=== PATIENT | male | born 1960 | race Caucasian/White ===

== ENCOUNTER → 2024-04-22 07:44 | Outpatient (REF) | payer BC, SELFPAY ==
[2024-04-22 08:03] LABS: % Basophils 0.4 % (0-2); % Eosinophils 3.2 % (0-6); % Immature Granulocytes 0.2 % (0-0.5); % Lymphocytes 36.3 % (20.5-51.1); % Monocytes 9.9 % (1.7-9.3); Absolute Eosinophils 0.2 10^3/uL (0-0.7); Absolute Lymphocytes 1.9 10^3/uL (1.2-3.4); Absolute Monocytes 0.5 10^3/uL (0.1-0.6); Absolute Neutrophils 2.6 10^3/uL (1.4-6.5); Hemoglobin 14.3 g/dL (13.0-18.0); Mean Corp Hgb Conc. 34.9 g/dL (33.0-37.0); Mean Corpuscular Hgb 29.8 pg (27.0-31.0); Mean Corpuscular Volume 85.4 fL (80.0-94.0); Mean Platelet Volume 10.9 fL (7.4-10.4); Nucleated Red Blood Cells % 0 % (-); Platelet Count 194 10^3/uL (130-400); Red Cell Dist. Width 13.2 % (11.5-14.5); White Blood Cell Count 5.2 10^3/uL (4.8-10.8)
[2024-04-22 10:27] LABS: ALT (SGPT) 28 U/L (0-50); AST (SGOT) 32 U/L (17-59); Albumin 3.9 g/dl (3.5-5.0); Alkaline Phosphatase 43 U/L (38-126); Blood Urea Nitrogen 22 mg/dl (9-20); Calcium 9.5 mg/dl (8.4-10.2); Carbon Dioxide 30 mmol/L (22-30); Chloride 102 mmol/L (98-107); Glucose 92 mg/dl (70-99); HDL Cholesterol 70 mg/dl; LDL Cholesterol, Calculated 105 mg/dl; Potassium 4.2 mmol/L (3.5-5.1); Sodium 142 mmol/L (135-145); Total Bilirubin 0.7 mg/dl (0.2-1.3); Total Cholesterol 186 mg/dl (50-199); Total Protein 6.3 g/dl (6.3-8.2); Triglyceride 57 mg/dl (10-149); Very Low Density Lipoprotein 11 mg/dl (0-30); eGFR > 60.00
== END ==
LOC: REG 07:44
PROVIDERS: ATTENDING PHYSICIAN Family Medicine
DX: J45.998 Other asthma (principal); R35.1 Nocturia; E78.2 Mixed hyperlipidemia; Z12.5 Encounter for screening for malignant neoplasm of prostate
CPT/HCPCS: 36415; 80053; 80061; 85025; G0103

== ENCOUNTER 2024-12-09 20:33 | Observation (INO) | payer BC, SELFPAY ==
[2024-12-09 15:21] VITALS: BP 134/82
[2024-12-09 15:38] LABS: % Basophils 0.2 % (0-2); % Eosinophils 1.3 % (0-6); % Immature Granulocytes 0.3 % (0-0.5); % Lymphocytes 18.2 % (20.5-51.1); % Monocytes 9.3 % (1.7-9.3); % Neutrophils 70.7 % (42.2-75.2); Absolute Eosinophils 0.1 10^3/uL (0-0.7); Absolute Lymphocytes 1.7 10^3/uL (1.2-3.4); Absolute Monocytes 0.9 10^3/uL (0.1-0.6); Absolute Neutrophils 6.7 10^3/uL (1.4-6.5); Hematocrit 38.1 % (39.0-52.0); Hemoglobin 13.7 g/dL (13.0-18.0); Mean Corpuscular Hgb 30.9 pg (27.0-31.0); Mean Corpuscular Volume 85.8 fL (80.0-94.0); Mean Platelet Volume 10.8 fL (7.4-10.4); Nucleated Red Blood Cells % 0 % (-); Platelet Count 169 10^3/uL (130-400); Red Blood Cell Count 4.44 10^6/uL (4.70-6.10); Red Cell Dist. Width 12.5 % (11.5-14.5); White Blood Cell Count 9.5 10^3/uL (4.8-10.8)
[2024-12-09 16:00] LABS: ALT (SGPT) 25 U/L (0-50); AST (SGOT) 25 U/L (17-59); Albumin 4.4 g/dl (3.5-5.0); Alkaline Phosphatase 54 U/L (38-126); Blood Urea Nitrogen 21 mg/dl (9-20); Calcium 9.4 mg/dl (8.4-10.2); Carbon Dioxide 23 mmol/L (22-30); Chloride 102 mmol/L (98-107); Glucose 105 mg/dl (70-99); Potassium 4.5 mmol/L (3.5-5.1); Sodium 137 mmol/L (135-145); Total Bilirubin 0.7 mg/dl (0.2-1.3); Total Protein 6.7 g/dl (6.3-8.2); eGFR > 60.00
--- NOTE | 2024-12-09 19:21 | ED.GENMED ---
History of Present Illness
General
Chief Complaint: Skin Problem
Time Seen by Provider: 12/09/24 18:49
History of Present Illness
History of Present Illness:
63-year-old male without significant past medical history presenting to the emergency department for left upper extremity swelling and redness. Patient reports over the weekend, noticed area of redness proximal to the elbow. He thought that it was
maybe a bug bite. He went to his doctor, was started on Bactrim 3 days ago. He followed up with his doctor today, noted that the redness was worsening, and also now with low-grade fevers. Denies pain with range of motion to the elbow. Denies
history of skin infections in the past. Denies numbness or tingling to his extremity. Denies chest pain or difficulty breathing. Denies abdominal pain or GI symptoms. Denies additional acute medical complaints
Past History
Past History
ED Past Medical History: None
Social History
Tobacco: Non-smoker
Alcohol: None
Drug: None
Personal:
Living: with family
Employment: Employed
Phy Exam
Physical Exam
Physical Exam:
General: Well-appearing, no clinical signs of dehydration, nontoxic and in no acute distress
HEENT: protecting airway
Neck: appears supple
CV: Normal heart rate, regular rhythm
Resp: No accessory muscle use, no increased work of breathing, lungs clear to auscultation bilaterally
Abd: No distention
Extremities: No deformities, generally swelling to left upper extremity with erythema from the distal forearm, up to the elbow, and starting to encroach on the proximal bicipital region. Small area of induration at the distal elbow region. No
crepitus. Range of motion of the elbow is intact, no pain with range of motion testing
Neuro: alert, no focal neurologic deficit
: deferred
Rectal: deferred
Psych: Normal affect
Skin: Intact
Course
Orders/Labs/Results
Orders:
Orders
12/09/24 15:30
Complete Blood Count/With Diff Urgent
Comprehensive Metabolic Panel Urgent
Lactic Acid Q4H
Comment: ON ICE, CANCEL 2ND ORDER IF FIRST LACTIC ACID LEVEL <2
Blood Culture Q20M
DERRICK Source: Blood/Venous
Specimen Description:
Comment: Urgent from separate sites. If patient screens positive for possible sepsis
12/09/24 19:37
Blood Culture Q20M
DERRICK Source: Blood/Venous
Specimen Description:
Comment: Urgent from separate sites. If patient screens positive for possible sepsis
12/09/24 19:45
Vancomycin [Vancocin] 2,000 mg 0.9% Sodium Chloride 500 ml [Nss] 500 ml IV NOW
Abnormal Lab Results
12/09/24
15:30
RBC 4.44 L 10^6/uL
(4.70-6.10)
Hct 38.1 L %
(39.0-52.0)
MPV 10.8 H fL
(7.4-10.4)
Absolute Neuts (auto) 6.7 H 10^3/uL
(1.4-6.5)
Absolute Monos (auto) 0.9 H 10^3/uL
(0.1-0.6)
Lymphocytes % 18.2 L %
(20.5-51.1)
BUN 21 H mg/dl
(9-20)
Glucose 105 H mg/dl
(70-99)
12/09/24 15:30
12/09/24 15:30
Vital Signs
Initial and Last Documented VS:
Initial Vital Signs
Temp Pulse Resp BP Pulse Ox
98.8 F 71 18 134/82 95
12/09/24 15:21 12/09/24 15:21 12/09/24 15:21 12/09/24 15:21 12/09/24 15:21
Last Documented Vital Signs
Temp Pulse Resp BP Pulse Ox
98.8 F 60 18 132/79 98
12/09/24 15:21 12/09/24 19:30 12/09/24 19:30 12/09/24 19:30 12/09/24 19:30
MDM/Problems Addressed
MDM/Problems Addressed:
63-year-old male presenting for worsening swelling and redness to the left upper extremity despite oral antibiotics. Vital signs are normal.
On exam, patient is resting comfortably, no acute distress. Patient does have significant cellulitic changes to the left upper extremity. No crepitus. Small area at the proximal forearm of induration, likely source. There is some streaking going
up the left bicipital region. At this time concern for outpatient therapy, has been on Bactrim with worsening. Although not polymicrobial coverage, concern of rapidity of spread. Screening laboratory analysis obtained. Unremarkable. No
neurovascular compromise to the extremity. No concern for septic arthritis of the elbow. No pain with range of motion. Feel patient warrants admission for IV antibiotics for failure of outpatient therapy
*Critical Care Note
Total Time (30-74mins, 75-104mins- exclusive of procedures): Not Applicable
ED Attending Note
-
Portions of this chart may have been created with voice recognition software.� Occasional wrong word or��sound alike� substitutions may have occurred due to the inherent limitations of voice recognition software.
Discharge Plan
Departure
Prescriptions:
No Action
Q Darion
2 puff inhalation DAILY
polymyxin B sulf-trimethoprim [Polytrim] 10 ML drops
1 drp OP Q3H Qty: 10 0RF
Rx Instructions:
to affected eye while awake
sulfamethoxazole-trimethoprim 800 MG/160 MG tablet
1 tab PO BID Qty: 10 0RF
amoxicillin-pot clavulanate [Augmentin] 1 EACH tablet
1 ea PO BID Qty: 20 0RF
Referrals:
Jeremi Gomez MD [Family Provider] -
Interventions
Interventions:
*Risk Screen - Suicide Last Done: 12/09/24 15:21
*General Assessment Last Done: 12/09/24 19:29
*Neglect/Abuse Screening Last Done: 12/09/24 19:29
*ED- Fall Risk Assessment Last Done: 12/09/24 19:29
*ED COVID-19 Vaccine History Last Done: 12/09/24 19:29
ED-Skin Assessment Last Done: 12/09/24 19:31
Discharge Date and Time
Print Language: MALAYSIAN
[2024-12-09 19:29] VITALS: BMI 26.9
[2024-12-09 19:30] VITALS: BP 132/79
--- NOTE | 2024-12-09 19:59 | HPS.HSE ---
Family Physician
-
Family Physician: Jeremi Gomez
Chief Complaint
-
left upper extremity swelling and redness
History of Present Illness
Patient is a 63-year-old male with no significant past medical history who presented to [facility] ED for evaluation of left upper extremity swelling and redness. Patient reports he noticed a bump to the posterior proximal elbow on Friday, think it was
a bug bite or infected pimple. He stated redness and swelling increased over a few days and he went to primary care that placed him on Bactrim that he took for last 3 days and erythema and edema continued to worsen. He followed up with primary today
with worsening symptoms and they referred him to ED for evaluation and treatment. Patient denies any fever, chills, cough, shortness of breath, nausea, vomiting, constipation, diarrhea or urinary symptoms.
Medical History
Past Medical History
Past Medical History: Reports Other
Additional Past Medical History:
Asthma
Actinic keratoses
Allergic rhinitis
Cancer, basal Cell-Excision (1996)
Past Surgical History: Reports Other
Additional Past Surgical History:
Cancer, basal Cell-Excision (1996)
vasectomy
Social History
Tobacco: Non-smoker
Alcohol: Occasional
Drug: None
Personal:
Living: With Family
Employment: Employed
Family History
Family History: Not pertinent
Allergies / Home Medications
Allergies reflects when Allergies were last updated in [facility].
Home Medications with original date entered in [facility]
Allergy/Medication List:
Allergies
Allergy/AdvReac Type Severity Reaction Status Date / Time
No Known Allergies Allergy Verified 12/09/24 15:21
Home Medications
fluticasone propionate 115 mcg-salmeterol 21 mcg/actuation HFA inhaler (Advair HFA) 1 puff inhalation R DAILY 12/09/24
sulfamethoxazole 800 mg-trimethoprim 160 mg tablet (Bactrim DS) 1 tab PO BID 12/09/24
valacyclovir 500 mg tablet 500 mg PO DAILYPRN PRN shingles/cold sores 12/09/24
Review of Systems
-
History Source: Patient
Constitutional: Reports No Symptoms
EENT: Reports No Symptoms
Respiratory: Reports No Symptoms
Cardiac: Reports No Symptoms
Abdomen/GI: Reports No Symptoms
: Reports No Symptoms
Musculoskeletal: Reports Other (bump to the posterior proximal elbow on Friday, continue to spread erythema and edema )
Skin: Reports No Symptoms
Neurological: Reports No Symptoms
Endocrine: Reports No Symptoms
Hematologic/Lymphatic: Reports No Symptoms
Psych: Reports No Symptoms
Physical Exam
Vital Signs
Vital Signs
Temp Pulse Resp BP Pulse Ox
98.8 F 60 18 132/79 98
12/09/24 15:21 12/09/24 19:30 12/09/24 19:30 12/09/24 19:30 12/09/24 19:30
Physical Exam
General: Well Developed, Well Nourished, No Apparent Distress, Comfortable and Conversant
HEENT: NormoCephalic, Moist mucous membranes, Atraumatic, [place] Conjunctivae, Nose Appears Normal and Ears Appear Normal
Respiratory: Clear
Cardiac: S1/S2 and Regular Rhythm
GI: Soft, Non Tender, Non Distended and Normal Bowel Sounds
Rectal: Deferred by Provider
Genito-urinary: Deferred by me
Musculoskeletal: No Clubbing, No Cyanosis and Edema, Left Upper Extremity (bump to the posterior proximal elbow on Friday, continue to spread erythema and edema )
Skin: Warm, Rash and Other (bump to the posterior proximal elbow on Friday, continue to spread erythema and edema )
Neuro: Awake, Alert, AO x 3 and Nonfocal/grossly intact
Psych: Calm and Intact Judgment/Insight
Laboratory Results
-
12/09/24 15:30
12/09/24 15:30
Laboratory Results
Lactic Acid Cancelled 12/09/24 19:30
Total Bilirubin 0.7 mg/dl (0.2-1.3) 12/09/24 15:30
AST 25 U/L (17-59) 12/09/24 15:30
ALT 25 U/L (0-50) 12/09/24 15:30
Alkaline Phosphatase 54 U/L (38-126) 12/09/24 15:30
Data Reviewed
-
Lab Data: Labs Reviewed by me
Impression/Plan
-
IMPRESSION/PLAN:
#left arm cellulitis
#left elbow erythema and edema
spreads down forearm to wrist and upward a few centimeters
WBC 9.5
- Admit to med/surg
- IV antibiotics
- supportive care
#asthma
- continue Advair
Code status: full code
DVT prophylaxis: Lovenox Sq
--- NOTE | 2024-12-09 20:03 | W.PN.UPDATE ---
Update Note
Progress Note Update
Patient seen in conjunction with JEANNETTE. I agree the findings and physical. I concur with assessment plan listed otherwise.
Briefly, this healthy 63-year-old with past medical history of mild intermittent asthma presented to the emergency department with swelling and redness of the left upper extremity.
Patient reported that he had a initial punctate redness and swelling just below the elbow on the left hand. He was not clear if it was a bug bite or not. He saw his physician who started him on Bactrim 3 days ago. He had a follow-up today and the
erythema and edema had spread into the forearm as well as up the upper arm. He reports mild discomfort but no significant pain. Range of motion is normal. He denies having fevers or chills. He denies any pruritus.
In the emergency department he was afebrile blood pressure was 132/79 with a pulse of 60 satting 98% on room air. CBC was completely unremarkable with a normal differential and no eosinophilia. Electrolytes were normal. BUN and creatinine were
normal and glucose was normal.
Assessment and plan
63-year-old with expanding cellulitis status post 3 days of outpatient Bactrim. Afebrile and shows no systemic signs of infection. However given the rapid spread there is concern for failure of outpatient Bactrim. Labs are unremarkable. Patient
has no significant risk factors.
- Admit to MedSurg observation
- IV vancomycin
- Keep arm elevated
- Blood cultures afebrile
- Pain control as needed
DVT prophylaxis with Lovenox subcu
CODE STATUS�full code
[2024-12-09] MEDS: VANCOCIN 540 MG IV (20:08)
[2024-12-09 21:32] VITALS: BP 128/75
--- NOTE | 2024-12-09 22:08 | EDRN ---
the pt c/o feeling itching on his scalp. noted redness to scalp and red blotches on face. The admitting hospitalist DELGADO Keenan was notified of above.
Per admitting DELGADO Christie, the pts Vancomycin infusion was STOPPED at this time and pt given ordered IVP medication. See EMAR
Total Amount of Vancomycin infused: 300mls infused out of 540mLs total
[2024-12-09] MEDS: BENADRYL 25 MG IV (22:13)
[2024-12-09 23:24] VITALS: BP 134/69; BMI 26.6
[2024-12-10] MEDS: ANCEF 10 IV ×3 (02:44→17:10)
[2024-12-10 06:55] LABS: Hematocrit 40.2 % (39.0-52.0); Hemoglobin 14.3 g/dL (13.0-18.0); Mean Corp Hgb Conc. 35.6 g/dL (33.0-37.0); Mean Corpuscular Hgb 30.4 pg (27.0-31.0); Mean Corpuscular Volume 85.4 fL (80.0-94.0); Mean Platelet Volume 10.8 fL (7.4-10.4); Platelet Count 162 10^3/uL (130-400); Red Blood Cell Count 4.71 10^6/uL (4.70-6.10); Red Cell Dist. Width 12.5 % (11.5-14.5)
[2024-12-10 07:15] VITALS: BP 139/66
[2024-12-10 07:20] LABS: Blood Urea Nitrogen 17 mg/dl (9-20); Calcium 9.5 mg/dl (8.4-10.2); Carbon Dioxide 23 mmol/L (22-30); Chloride 106 mmol/L (98-107); Estimated Creatinine Clearance 77 ml/min; Glucose 113 mg/dl (70-99); Potassium 4.6 mmol/L (3.5-5.1); Sodium 138 mmol/L (135-145); eGFR > 60.00
[2024-12-10] MEDS: ADVAIR HFA 115/21 MCG INHALER 1 PUFF INH (07:39)
--- NOTE | 2024-12-10 10:49 | W.PN.HOSP.TC ---
Addendum entered and electronically signed by Segun Dow DO 12/10/24 15:51:
Doppler ultrasound negative for DVT.
Stable for discharge after next dose of IV cefazolin.
Follow-up with PCP.
Original Note:
Today's Communication/Plan
-
Continue antibiotics
Doppler ultrasound
Discharge later
Assessment / Plan
Assessment / Plan
Gen-AAOx3, NAD
HEENT-NC, AT, anicteric, clear oral mm
Neck-supple
CV-reg, no M, +S1/S2
Lungs-clear B/L
Abd-soft, NT, ND
Ext-left forearm and upper arm edema, fading erythema
Musculoskeletal-no cyanosis, clubbing
Skin-warm and dry
Neuro-grossly non-focal
Psych-calm, cooperative
Left upper extremity cellulitis -clinically improving. No signs or symptoms of sepsis. Check Doppler ultrasound, rule out DVT given extensive edema. Although, patient states the edema is improving.
Continue IV cefazolin. Anticipate discharge on Keflex.
Did develop 'red man' syndrome with 1 dose of vancomycin.
Anticipate discharge later today if stable. Follow-up with PCP next week.
Anticipated Discharge: Today
Subjective/Interval History
-
Date of Service: December 10, 2024
Patient seen and examined. Feeling better, less swelling of the arm. No complaints.
Objective Data
-
Labs:
Laboratory Results
12/10/24
06:39
WBC 6.0
Hgb 14.3
Hct 40.2
Plt Count 162
Sodium 138
Potassium 4.6
Chloride 106
Carbon Dioxide 23
BUN 17
Creatinine 1.1
Glucose 113 H
Calcium 9.5
Vital Signs:
Vital Signs
Temp Pulse Resp BP Pulse Ox
97.9 F 65 16 139/66 99
12/10/24 07:15 12/10/24 07:41 12/10/24 07:41 12/10/24 07:15 12/10/24 07:41
I&O
12/09/24 12/10/24 12/11/24
06:59 06:59 06:59
Intake Total 0 / 0
Balance 0 / 0
Review of Systems
-
History Source: Patient
All other systems: Reviewed and negative
[2024-12-10 15:10] VITALS: BP 129/65
--- NOTE | 2024-12-10 15:54 | W.DS.TRANS ---
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
-
Discharge Instructions:
Discharge Diagnosis/Procedures Left arm cellulitis
Diet Regular
Activity As tolerated
Driving Restrictions As prior to admission
Bathing Restrictions None
Instructions:
Stand-Alone Forms:
Changes to Home Medications: No
Discharge Medications:
DC Medications w/original date entered in [facility]
fluticasone propionate 115 mcg-salmeterol 21 mcg/actuation HFA inhaler (Advair HFA) 1 puff inhalation R DAILY Lung/Breathing Issues 12/09/24
valacyclovir 500 mg tablet 500 mg PO DAILYPRN PRN shingles/cold sores 12/09/24
cephalexin 500 mg capsule 500 mg PO QID #32 caps 12/10/24
Home Medication Changes
Pending Results: No
--- NOTE | 2024-12-10 16:51 | CM ---
Met with patient to obtain information for assessment. Patient stated that he lives with his in a two story home with two steps to enter. He is independent with his ADLs, personal care, bathing and dressing. 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 He has no DME. He has never been to a SNF.
Patient has a prescription plan and uses, [facility] in [place].
His PCP is, Jeremi Hinojosa.
Patient was provided with OBS letter. It was reviewed and signed and is now on chart.
Plan: Case management will continue to follow and assist with discharge planning. Home no needs.
== END 2024-12-10 17:23 | disposition home or self-care (01) ==
LOC: 4 EAST ACU 20:33
PROVIDERS: Nurse Practitioner Family; ADMITTING PHYSICIAN Internal Medicine; ATTENDING PHYSICIAN Hospitalist; EMERGENCY PHYSICIAN Student in an Organized Health Care Education/Training Program; FAMILY PHYSICIAN Family Medicine
DX: L03.114 Cellulitis of left upper limb (principal); M79.89 Other specified soft tissue disorders; R50.9 Fever, unspecified; J45.20 Mild intermittent asthma, uncomplicated; R60.9 Edema, unspecified; Z85.828 Personal history of other malignant neoplasm of skin; Z79.51 Long term (current) use of inhaled steroids
CPT/HCPCS: 80048; 80053; 83605; 85025; 85027; 87040; 93971; 94640; 96365; 96366; 99285; G0378

== ENCOUNTER → 2025-05-09 07:49 | Outpatient (REF) | payer BC, SELFPAY ==
[2025-05-09 09:28] LABS: Hematocrit 41.4 % (39.0-52.0); Hemoglobin 14.3 g/dL (13.0-18.0); Mean Corp Hgb Conc. 34.5 g/dL (33.0-37.0); Mean Corpuscular Volume 88.3 fL (80.0-94.0); Nucleated Red Blood Cells % 0 % (-); Platelet Count 192 10^3/uL (130-400); Red Cell Dist. Width 12.7 % (11.5-14.5)
[2025-05-09 09:43] LABS: ALT (SGPT) 27 U/L (0-50); AST (SGOT) 29 U/L (17-59); Albumin 4.1 g/dl (3.5-5.0); Alkaline Phosphatase 38 U/L (38-126); Blood Urea Nitrogen 25 mg/dl (9-20); Calcium 9.8 mg/dl (8.4-10.2); Carbon Dioxide 29 mmol/L (22-30); Chloride 104 mmol/L (98-107); Glucose 99 mg/dl (70-99); HDL Cholesterol 72 mg/dl; LDL Cholesterol, Calculated 121 mg/dl; Potassium 4.8 mmol/L (3.5-5.1); Sodium 138 mmol/L (135-145); Total Protein 6.5 g/dl (6.3-8.2); Very Low Density Lipoprotein 13 mg/dl (0-30); eGFR > 60.00
[2025-05-09 10:06] LABS: PSA, Total - Screen 1.84 ng/ml (0.0-4.0)
== END ==
LOC: REG 07:49
PROVIDERS: ATTENDING PHYSICIAN Family Medicine
DX: E78.2 Mixed hyperlipidemia (principal); J45.998 Other asthma; R35.1 Nocturia
CPT/HCPCS: 36415; 80053; 80061; 85025; G0103